=== PATIENT | male | born 1990 | race African-American/Black ===

== ENCOUNTER 2017-02-13 20:23 | Emergency (ER) | payer MEDICAID ==
[~2017-02-13] VITALS: Ht 180.3 cm; Wt 64.0 kg
[2017-02-13 20:25] VITALS: BP 130/86
== END 2017-02-13 23:00 | disposition left against medical advice (07) ==
LOC: ER 20:23
DX: H57.11 Ocular pain, right eye (principal); Z53.21 Procedure and treatment not carried out due to patient leaving prior to being seen by health care provider

== ENCOUNTER 2017-06-01 17:12 | Emergency (ER) | payer MEDICAID ==
[~2017-06-01] VITALS: Ht 177.8 cm; Wt 68.0 kg
[2017-06-01 17:33] VITALS: BP 132/77
== END 2017-06-01 19:17 | disposition home or self-care (01) ==
LOC: ER 17:41
DX: B02.8 Zoster with other complications (principal); L03.319 Cellulitis of trunk, unspecified
CPT/HCPCS: 99283

== ENCOUNTER 2019-12-06 01:03 | Emergency (ER) | payer MEDICAID ==
[~2019-12-06] VITALS: Ht 180.3 cm; Wt 66.0 kg
[2019-12-06] MEDS ORDERED: KETOROLAC 30MG/ML VIAL IM ONE (02:30)
[2019-12-06 03:17] VITALS: BP 121/72
== END 2019-12-06 03:18 | disposition home or self-care (01) ==
LOC: ER 01:03
DX: S16.1XXA Strain of muscle, fascia and tendon at neck level, initial encounter (principal); X58.XXXA Exposure to other specified factors, initial encounter; Y93.89 Activity, other specified; Y92.89 Other specified places as the place of occurrence of the external cause; Y99.8 Other external cause status; M25.511 Pain in right shoulder
CPT/HCPCS: 96372; 99283; J1885